=== PATIENT | male | born 1955 | race Caucasian/White ===

== ENCOUNTER 2024-02-06 16:05 | Emergency (ER) | payer OTHER ==
[2024-02-06 16:38] VITALS: TEMP 97.7; BMI 30.5
[2024-02-06 17:36] LABS: BASO % 0.7 % (0-2.0); EOS % 10.4 % (0-4.5); HEMATOCRIT 43.9 % (35.4-49); HEMOGLOBIN 14.7 GM/dL (11.7-16.9); LYMPH % 35.2 % (8-40); MCH 30.1 pg (25.7-33.7); MCHC 33.6 g/dl (32.0-35.9); MEAN CELL VOLUME 89.7 fl (80-96); MONO % 10.9 % (3.8-10.2); NEUT % 42.8 % (42.8-82.8); PLATELET COUNT 154 10^3/uL (134-434); RDW 13.4 % (11.9-15.9); WHITE BLOOD COUNT 7.8 K/mm3 (4.0-10.0)
[2024-02-06] MEDS ORDERED: LIDOCAINE 4% PATCH TP ONE (17:36)
[2024-02-06] MEDS ORDERED: amLODIPine BESYLATE 5 MG TABLET (FP) ONE (17:36)
[2024-02-06 17:46] LABS: PROTHROMBIN TIME (PATIENT) 11.5 SEC (9.7-13.0)
[2024-02-06] MEDS: amLODIPine BESYLATE 5 MG TABLET (FP) PO ONE (17:47)
[2024-02-06] MEDS: LIDOCAINE 4% PATCH TP ONE (17:47)
[2024-02-06 17:49] LABS: ACTIVATED PTT 30.8 SECONDS (25.2-36.5)
[2024-02-06 18:04] LABS: POTASSIUM 3.9 mmol/L (3.5-5.1)
[2024-02-06 18:05] LABS: EPI CELLS 3 /uL (0-25.1); HYALINE CASTS 0 /uL (0-3.1); PH,URINE 5.5 (5.0-8.0); URINE APPEARANCE CLEAR; URINE BACTERIA 4 /uL (0-1359); URINE BILIRUBIN NEGATIVE (NEGATIVE); URINE COLOR YELLOW; URINE GLUCOSE (UA) NEGATIVE (NEGATIVE); URINE KETONE NEGATIVE (NEGATIVE); URINE LEUK ESTERASE NEGATIVE (NEGATIVE); URINE NITRITE NEGATIVE (NEGATIVE); URINE PROTEIN 3+ (NEGATIVE); URINE RBC 26 /uL (0-23.9); URINE UROBILINOGEN 0.2 mg/dL (0.2-1.0); URINE WBC 4 /uL (0-25.8)
[2024-02-06 18:06] LABS: ALBUMIN 3.1 g/dl (3.4-5.0)
[2024-02-06 18:07] LABS: BLOOD UREA NITROGEN 20.3 mg/dL (7-18)
[2024-02-06 18:10] LABS: CREATININE 0.9 mg/dL (0.55-1.3)
[2024-02-06 18:11] VITALS: BP 165/84; PULSE 52; RESP 20
[2024-02-06 18:11] LABS: BILIRUBIN,TOTAL 0.5 mg/dL (0.2-1); TOT PROT 6.9 g/dl (6.4-8.2)
[2024-02-06] MEDS ORDERED: LIDOCAINE PATCH REMOVAL MC SCH (22:00)
== END 2024-02-06 19:49 | disposition home or self-care (01) ==
LOC: JER 16:05
DX: R55 Syncope and collapse (principal); I10 Essential (primary) hypertension; R60.0 Localized edema; Z20.822 Contact with and (suspected) exposure to COVID-19
CPT/HCPCS: 0241U-QW; 36415; 70450-TC; 71046-TC-FY; 80053; 81003; 83880; 84484; 85025; 85610; 85730; 87086; 93005; 93010; 99285-25